=== PATIENT | male | born 1990 | race Caucasian/White ===

== ENCOUNTER 2023-01-30 15:43 | Emergency (ER) | payer OTHER, MEDICAID ==
[2023-01-30] MEDS ORDERED: Lidocaine 1% 10 ML MDV INJECT ONE (16:41)
[2023-01-30] MEDS ORDERED: Bupivacaine 0.5%/EPINEPHrine 1:200,000 30 ML SDV INJECT ONE (16:55)
[2023-01-30] MEDS ORDERED: Diphtheria,Pertussis(Acell),Tetanus Vaccine 0.5 ML Syringe IM ONE (21:06)
== END 2023-01-30 21:17 | disposition home or self-care (01) ==
LOC: JD.ED 15:43
DX: S41.112A Laceration without foreign body of left upper arm, initial encounter (principal); S41.111A Laceration without foreign body of right upper arm, initial encounter; Z23 Encounter for immunization; F17.210 Nicotine dependence, cigarettes, uncomplicated; Z86.16 Personal history of COVID-19; V19.49XA Pedal cycle driver injured in collision with other motor vehicles in traffic accident, initial encounter; Y93.55 Activity, bike riding; Y92.410 Unspecified street and highway as the place of occurrence of the external cause
CPT/HCPCS: 12034; 99282; J3490

== ENCOUNTER 2025-01-04 16:11 | Emergency (ER) | payer SELFPAY | END 2025-01-04 17:20 | disposition home or self-care (01) | LOC: JD.ED 16:11 | DX: S61.412A Laceration without foreign body of left hand, initial encounter (principal); Z86.16 Personal history of COVID-19; W26.8XXA Contact with other sharp object(s), not elsewhere classified, initial encounter | CPT/HCPCS: 12001; 99283; J2003; 99282 ==